=== PATIENT | male | born 1990 | race Caucasian/White ===

== ENCOUNTER 2016-08-28 08:06 | Emergency (ER) | payer MEDICARE, OTHER ==
[2016-08-28 09:18] LABS: BASOPHIL 0.2 % (0-2); EOSINOPHIL 0.3 % (0-5); HCT 42.8 % (42.0-52.0); HGB 15.4 g/dl (13.2-18.0); MCH 30.1 pg (25.0-31.0); MCV 83.8 fL (78.0-100.0); MONOCYTE 5.6 % (0-12); NEUTROPHIL 85.9 % (41-80); PLT 151 K/uL (150-400); RBC 5.11 M/uL (4.70-6.00); RDW 12.7 % (11.5-14.0); WBC 12.7 K/uL (4.0-10.5)
[2016-08-28 09:39] LABS: BILIRUBIN - TOTAL 0.6 mg/dL (0.1-1.0); CREATININE 1.1 mg/dL (0.7-1.2); GLOBULIN (CALCULATION) 2.4 g/dL (2.2-4.2); POTASSIUM 3.8 mmol/L (3.5-5.1); TOTAL PROTEIN 7.4 g/dL (6.4-8.3)
== END 2016-08-28 09:40 | disposition home or self-care (01) ==
LOC: FER 08:06
PROVIDERS: Emergency Medicine
DX: N13.2 Hydronephrosis with renal and ureteral calculous obstruction (principal)
CPT/HCPCS: 36415; 80053; 85025; J1170; J1885

== ENCOUNTER 2016-08-29 23:49 | Emergency (ER) | payer MEDICARE, OTHER ==
[2016-08-30 01:07] LABS: BILIRUBIN 1+ mg/dL (NEGATIVE); BLOOD 3+ Ery/uL (NEGATIVE); CLARITY CLEAR (CLEAR); COLOR YELLOW (YELLOW); GLUCOSE (U) NORMAL (NORMAL); KETONE (U) 2+ (MODERATE) mg/dL (NEGATIVE); LEUKOCYTES NEGATIVE Leu/uL (NEGATIVE); NITRITE NEGATIVE (NEGATIVE); PROTEIN 1+ mg/dL (NEGATIVE); SPECIFIC GRAVITY 1.025 (1.001-1.030)
[2016-08-30 01:14] LABS: MUCOUS LARGE
[2016-08-30 01:26] LABS: BASOPHIL 0.3 % (0-2); EOSINOPHIL 0.5 % (0-5); HCT 42.6 % (42.0-52.0); HGB 14.9 g/dl (13.2-18.0); LYMPHOCYTE 14.2 % (15-48); MCH 29.6 pg (25.0-31.0); MCV 84.7 fL (78.0-100.0); MONOCYTE 10.5 % (0-12); MPV 11.7 fL (6.0-9.5); NEUTROPHIL 74.5 % (41-80); PLT 135 K/uL (150-400); RBC 5.03 M/uL (4.70-6.00); RDW 12.5 % (11.5-14.0); WBC 11.6 K/uL (4.0-10.5)
[2016-08-30 01:48] LABS: CREATININE 1.6 mg/dL (0.7-1.2); POTASSIUM 3.8 mmol/L (3.5-5.1)
== END 2016-08-30 03:21 | disposition home or self-care (01) ==
LOC: FER 23:49
PROVIDERS: Emergency Medicine
DX: N20.0 Calculus of kidney (principal); R11.2 Nausea with vomiting, unspecified; T40.2X5A Adverse effect of other opioids, initial encounter
CPT/HCPCS: 36415; 74000; 80048; 81001; 85025; J2405